=== PATIENT | female | born 1975 | race Two or more races ===

== ENCOUNTER → 2024-10-16 | Outpatient (CLI) | payer MEDICAID, SELFPAY ==
--- NOTE | 2024-10-16 | XR_ITS ---
Examination: Breast ultrasound, unilateral, left complete Date and time of exam: October 16, 2024 1220 hours INDICATIONS: Palpable lump left breast 2:00 position 4 months, personal history right breast cancer lumpectomy 2017 09 Technique: Real-time harman scale ultrasonographic imaging performed right breast including all 4 quadrants as well as nipple retroareolar and axillary region. Findings: 1:00 cyst 6 x 3 x 6 mm 2:00 oval mass, irregular, indistinct margins 2.9 x 1.8 x 2.2 cm 11:00 oval mass circumscribed 7 x 3 x 6 mm IMPRESSION: BI-RADS Category 4: Suspicious for malignancy Suspicious mass 2:00 position left breast 2.9 x 1.8 x 2.2 cm, biopsy is needed to exclude breast carcinoma, this mass is amenable to ultrasound-guided breast biopsy for diagnosis Recommend follow-up repeat diagnostic mammography, bilateral
== END | disposition home or self-care (01) ==
PROVIDERS: PCP Nurse Practitioner Family; Referring Provider Student in an Organized Health Care Education/Training Program; Visit Provider Student in an Organized Health Care Education/Training Program
DX: N63.21 Unspecified lump in the left breast, upper outer quadrant (principal); Z85.3 Personal history of malignant neoplasm of breast
CPT/HCPCS: 76641

== ENCOUNTER → 2024-11-16 | Outpatient (CLI) | payer MEDICAID, SELFPAY ==
--- NOTE | 2024-11-16 12:33 | XR_ITS ---
Examination: Wrist, right 3 views Technique: Wrist AP, oblique, lateral 3 views Date and time of exam: November 16, 2024 at 1353 hours INDICATIONS: Right wrist pain beginning 2 months ago. FINDINGS: Significant osteopenia Mild diffuse narrowing radiocarpal intercarpal and carpal metacarpal joints No erosive arthritis No fracture IMPRESSION: Significant osteopenia Mild nonerosive diffuse narrowing radiocarpal, intercarpal and carpometacarpal joints
== END | disposition home or self-care (01) ==
LOC: CDIM 12:17
PROVIDERS: PCP Nurse Practitioner Family; Referring Provider Nurse Practitioner Family; Visit Provider Nurse Practitioner Family
DX: M85.88 Other specified disorders of bone density and structure, other site (principal); M25.831 Other specified joint disorders, right wrist
CPT/HCPCS: 73110

== ENCOUNTER → 2024-12-10 | Outpatient (CLI) | payer MEDICAID, SELFPAY ==
[2024-12-07 11:36] LABS: Basophils # (Auto) 0.1 Thou/mm3 (0.0-0.2); Basophils % (Auto) 0 % (0-2.5); Eosinophils # (Auto) 0.1 Thou/mm3 (0.0-0.5); Eosinophils % (Auto) 1 % (0-10); Hematocrit 44.8 % (36.0-46.0); Hemoglobin 15.3 g/dL (12.0-16.0); Immature Granulocytes % (Auto) 1 % (0-0); Immature Granulocytes Auto 0.07 Thou/mm3 (0.00-0.00); Lymphocytes # (Auto) 2.3 Thou/mm3 (1.0-4.8); Lymphocytes % (Auto) 20 % (10-50); Mean Corpuscular HGB Conc 34.2 g/dl (31.0-37.0); Mean Corpuscular Hemoglobin 28.8 pg (25.0-35.0); Mean Corpuscular Volume 84 fL (80-100); Monocytes # (Auto) 0.5 Thou/mm3 (0.0-0.8); Monocytes % (Auto) 4 % (0-12); Neutrophils # (Auto) 8.3 Thou/mm3 (1.8-7.7); Neutrophils % (Auto) 74 % (37-80); Nucleated Red Blood Cell % 0 /100 WBC (0); Platelet Count 247 Thou/mm3 (140-440); RDW Standard Deviation 39.6 fL (36.4-46.3); Red Blood Count 5.32 Miln/mm3 (4.00-5.20); White Blood Count 11.3 Thou/mm3 (3.6-11.0)
[2024-12-07 11:54] LABS: Partial Thromboplastin Time 27.9 Seconds (22.0-36.0)
--- NOTE | 2024-12-10 09:30 | XR_ITS ---
Examinations: Ultrasound-guided percutaneous breast biopsy, left breast 2:00 nodule Left breast sonography limited INDICATIONS: BI-RADS 4 suspicious mass 2:00 position left breast on left breast sonogram October 16, 2024 Exam date and time: December 10, 2024 1036 hours. Informed consent provided. Technique: A timeout was completed verifying correct patient, procedure, site, positioning, and special equipment if applicable Informed consent provided. The patient was placed in a supine position for the breast biopsy. Sonographic images of the breast were performed for localization of the suspicious nodule The patient's breast was prepped and draped in sterile fashion. Maximum sterile barrier technique, hand hygiene, ultrasound sterile technique 1% lidocaine was used to anesthetize the skin and breast adjacent to the suspicious nodule. Utilizing ultrasonographic guidance, 8 core biopsies were obtained of the suspicious nodule utilizing an 18-gauge BioPince needle. The specimens appears satisfactory. US guided breast biopsy marker placement. Estimated blood loss 3 cc. The patient tolerated the procedure well and there were no complications. Impression: Successful ultrasound-guided percutaneous breast biopsy, left breast 2:00 mass. Ultrasound guided breast biopsy marker placement.
== END | disposition home or self-care (01) ==
LOC: SDIM 10:16 → SIRX 10:28
PROVIDERS: Radiology Diagnostic Radiology; PCP Nurse Practitioner Family; Referring Provider Nurse Practitioner Family; Visit Provider Nurse Practitioner Family
DX: C50.412 Malignant neoplasm of upper-outer quadrant of left female breast (principal); Z17.1 Estrogen receptor negative status [ER-]; Z17.22 Progesterone receptor negative status; Z01.812 Encounter for preprocedural laboratory examination
CPT/HCPCS: 19083; 36415; 85025; 85610; 85730; A4648

== ENCOUNTER → 2024-12-21 | Outpatient (CLI) | payer MEDICAID, SELFPAY ==
--- NOTE | 2024-12-21 15:42 | XR_ITS ---
Examination: Ribs, right, unilateral 3 views TECHNIQUE: AP, RPO and LPO right ribs 3 views Exam date and time: December 21, 2024 1553 hours INDICATIONS: Right rib pain 3 days no trauma Findings: Normal heart size No pneumothorax Moderate osteopenia Ribs appear intact IMPRESSION: No pneumothorax Ribs appear intact
--- NOTE | 2024-12-21 15:42 | XR_ITS ---
Examination: PA lateral chest 2 views TECHNIQUE: Upright PA lateral chest 2 views Exam date and time: December 13, 2024 1559 hours INDICATIONS: Coughing chest pain beginning 3 days ago. FINDINGS: Normal heart size Left subclavian Port-A-Cath tip SVC No lobar pneumonia or pulmonary edema Moderate osteopenia IMPRESSION: No pneumonia or pulmonary edema
== END | disposition home or self-care (01) ==
PROVIDERS: PCP Nurse Practitioner Family; Referring Provider Nurse Practitioner Family; Visit Provider Nurse Practitioner Family
DX: R05.9 Cough, unspecified (principal); R07.81 Pleurodynia
CPT/HCPCS: 71046; 71100

== ENCOUNTER 2025-01-22 07:55 | Day surgery (SDC) | payer MEDICAID, SELFPAY ==
--- NOTE | 2025-01-21 08:45 | EKG_ITS ---
[facility] Test Date: 2025-01-21 Pat Name: ULISES PARKINSON Department: Room: - Gender: Female Last Puller: DEBORAH : 1975 Requested By: Andres Rutherford Order Number: [id number] Reading MD: Andres Rutherford Measurements Intervals [place] Rate: 96 P: 56 DC: 210 QRS: 1 QRSD: 100 T: 62 QT: 341 QTc: 432 Interpretive Statements SINUS RHYTHM WITH FIRST DEGREE AV BLOCK LOW QRS VOLTAGE IN PRECORDIAL LEADS [QRS DEFLECTION < 1.0 mV IN CHEST LEADS] SEPTAL MYOCARDIAL INFARCTION , PROBABLY OLD [40+ ms Q WAVE IN V1/V2] No previous ECG available for comparison /[id number]/[email or web address]/[id number].pdf
[2025-01-21 08:54] VITALS: BMI 22.8
[2025-01-21 10:31] LABS: Basophils # (Auto) 0.1 Thou/mm3 (0.0-0.2); Basophils % (Auto) 1 % (0-2.5); Eosinophils # (Auto) 0.2 Thou/mm3 (0.0-0.5); Eosinophils % (Auto) 3 % (0-10); Hematocrit 43.5 % (36.0-46.0); Hemoglobin 14.8 g/dL (12.0-16.0); Immature Granulocytes % (Auto) 1 % (0-0); Immature Granulocytes Auto 0.04 Thou/mm3 (0.00-0.00); Lymphocytes # (Auto) 1.5 Thou/mm3 (1.0-4.8); Lymphocytes % (Auto) 17 % (10-50); Mean Corpuscular Hemoglobin 29.2 pg (25.0-35.0); Mean Corpuscular Volume 86 fL (80-100); Monocytes # (Auto) 0.4 Thou/mm3 (0.0-0.8); Monocytes % (Auto) 5 % (0-12); Neutrophils # (Auto) 6.1 Thou/mm3 (1.8-7.7); Neutrophils % (Auto) 73 % (37-80); Nucleated Red Blood Cell % 0 /100 WBC (0); Platelet Count 238 Thou/mm3 (140-440); RDW Standard Deviation 39.5 fL (36.4-46.3); Red Blood Count 5.07 Miln/mm3 (4.00-5.20); White Blood Count 8.4 Thou/mm3 (3.6-11.0)
[2025-01-21 10:36] LABS: Partial Thromboplastin Time 27.7 Seconds (22.0-36.0); Prothrombin Time 11.2 Seconds (9.0-12.2)
[2025-01-21 10:40] LABS: HCG,Qualitative Serum Negative
[2025-01-21 10:42] LABS: Alanine Aminotransferase 42 U/L (10-49); Albumin/Globulin Ratio 2.3 (1.2-2.2); Alkaline Phosphatase 99 U/L (46-116); Anion Gap 9 (7-16); Aspartate Amino Transferase 22 U/L (0-34); BUN/Creatinine Ratio 17 Ratio (12-20); Bilirubin,Total 0.4 mg/dL (0.3-1.2); Blood Urea Nitrogen 12 mg/dL (9-23); Calcium 11.8 mg/dL (8.3-10.6); Calcium (Corrected) 11.8 mg/dL (8.5-10.1); Carbon Dioxide 25.9 mMol/L (20.0-31.0); Chloride 102 mMol/L (98-107); Creatinine (Component) 0.7 mg/dL (0.6-1.3); Globulin 2.2 gm/dL (2.3-3.5); Glucose 187 mg/dL (74-106); Osmolality,Calculated 278 (275-295); Potassium 4.2 mMol/L (3.4-5.1); Sodium 137 mMol/L (136-145); Total Protein 7.2 gm/dL (5.7-8.2); eGFR > 60 See Note
[2025-01-22] VITALS (15 sets, daily range): BP systolic 109–178; BP diastolic 74–100; PULSE 79–98; RESP 12–20; TEMP 36.3–36.5; O2SAT 95–100; BMI 24.1
[2025-01-22] MEDS: RINGERS LACTATED 1000 ML 1,000 ML 20 ML IV (09:00)
--- NOTE | 2025-01-22 10:00 | XR_ITS ---
Examination: Nuclear medicine lymph glands imaging [place] lymph nodes study left breast Exam date and time: January 22, 2025, 10:00 AM INDICATIONS: Diagnosis left breast cancer, malignant neoplasm upper outer quadrant left female breast, preop lumpectomy and lymph node dissection today TECHNIQUE AND FINDINGS: Informed consent provided. Timeout performed. Skin prepped over the left breast and sterile drape applied hand hygiene 1% lidocaine administered for local anesthesia 2.0 mCi technetium 99m filtered sulfur colloid introduced subareolar left breast Estimated blood loss 0 cc No imaging IMPRESSION: Successful sentinel lymph node study left breast
--- NOTE | 2025-01-22 11:57 | ESOP_ITS ---
Date of Procedure 01/22/25 Pre Op Diagnosis Malignant neoplasm of upper-outer quadrant of left breast Post Op Diagnosis Malignant neoplasm of upper-outer quadrant of left breast Malfunctioning Port-A-Cath Procedure Left mastectomy with sentinel lymphadenectomy and injection of methylene blue Removal of Port-A-Cath Findings A large tumor in the upper and outer quadrant of left breast without obvious invasion into the underlying muscle or overlying skin. 3 sentinel lymph nodes identified and removed. The Port-A-Cath was not functioning, and could not be flushed or could not aspirate any blood. Anesthesia GETA and local Drains ISAAC drain x 2 Pathology / specimen Other (Left breast. 3 sentinel lymph nodes. Port-A-Cath for gross inspection) Estimated Blood Loss 25 Condition Stable Disposition PACU Surgeon Andres Rutherford MD Surgical Staff Operation Date: 01/22/25 11:30 Case Staff RETAIL SUPPORT ASSOCIATE: Duc Conklin RN First Assistant: Christie Wagner
--- NOTE | 2025-01-22 12:06 | SUR.PHASEI ---
pt received from OR in recovery bay 7. pt asleep but responds to voice, breathing unlabored on oxymask 8l. v/s stable. pt dressing to left breast cdi, breast binder in place, [address] report received from Jarrett XIAO and Yessenia TIPTON.
[2025-01-22] MEDS: HYDROmorphone INJ 2 MG/ML VIAL 0.4 MG IV (12:20)
[2025-01-22] MEDS: ONDANSETRON INJ 2 MG/ML INJ 2 ML 4 MG IV (12:29)
[2025-01-22] MEDS: METOCLOPRAMIDE INJ 5 MG/ML VIAL 2 ML 10 MG IVP (12:46)
--- NOTE | 2025-01-22 13:37 | SUR.PHASEII ---
Contacted Dr. Rutherford about pt passing large blood clots in ISAAC drain, no new orders received.
--- NOTE | 2025-01-22 13:51 | SUR.PHASEII ---
Contacted Dr. Rutherford about drainage amount after large blood clot passed through mayela drain 210ml and continuing to drain. no new orders received.
--- NOTE | 2025-01-22 14:05 | SUR.PHASEII ---
Received report on pt. s/p surgery from Delfin TIPTON. Pt. is resting with eyes closed, responds to verbal commands, VSS, no c/o pain or nausea at this time. Monitoring output of mayela drain. Pt.'s family at bedside.
--- NOTE | 2025-01-22 14:40 | SUR.PHASEII ---
Pts mayela drain bulb changed twice on left side to large amount of blood clots preventing emptying of drain, will inform Dr. Rutherford.
--- NOTE | 2025-01-22 14:45 | SUR.PHASEII ---
pt able to tolerate oral fluids without difficulty swallowing or nausea/vomiting.
--- NOTE | 2025-01-22 14:46 | SUR.PHASEII ---
Grey Lares contacted Dr. Rutherford about drainage amount 315ml total left side and 30 ml total right side and multiple clots in mayela drain, no new orders received. pt cleared for discharge.
[2025-01-22] MEDS: MEPERIDINE INJ 50 MG/ML VIAL 12.5 MG IV (15:00)
--- NOTE | 2025-01-22 15:45 | SUR.PHASEII ---
pt awake and alert, breathing unlabored on room air. v/s stable. pt dressing to left breast cdi, breast binder in place, mayela x2 in place. pt able to ambulate to wheelchair with steady gait. d/c instructions given with family member Aide in room, all questions answered. pt d/c via wheelchair with all belongings.
== END 2025-01-22 15:45 | disposition home or self-care (01) ==
PROVIDERS: Anesthesiology; Radiology Diagnostic Radiology; PCP Nurse Practitioner Family; Referring Provider Surgery; Visit Provider Surgery
PROC: (CPT 19303; principal; 2025-01-22 11:15)
DX: C50.412 Malignant neoplasm of upper-outer quadrant of left female breast (principal); C77.3 Secondary and unspecified malignant neoplasm of axilla and upper limb lymph nodes; Z01.810 Encounter for preprocedural cardiovascular examination; T82.594A Other mechanical complication of infusion catheter, initial encounter; E11.9 Type 2 diabetes mellitus without complications
CPT/HCPCS: 19303; 38525; 38900; 36590; 36415; 80048; 80053; 84703; 85025; 85610; 85730; 93005; A4217; A4649; A9541; J0131; J0690; J1171; J1885; J2175; J2250; J2405; J2704; J2765; J3010; J3490; J7120; Q9968

== ENCOUNTER 2025-06-11 08:10 | Day surgery (SDC) | payer MEDICAID, SELFPAY ==
[2025-06-10 08:43] VITALS: BMI 24.5
[2025-06-10 09:53] LABS: Basophils # (Auto) 0.1 Thou/mm3 (0.0-0.2); Basophils % (Auto) 1 % (0-2.5); Eosinophils # (Auto) 0.2 Thou/mm3 (0.0-0.5); Eosinophils % (Auto) 2 % (0-10); Hematocrit 41.2 % (36.0-46.0); Hemoglobin 14.0 g/dL (12.0-16.0); Immature Granulocytes Auto 0.05 Thou/mm3 (0.00-0.00); Lymphocytes # (Auto) 1.9 Thou/mm3 (1.0-4.8); Lymphocytes % (Auto) 23 % (10-50); Mean Corpuscular HGB Conc 34.0 g/dl (31.0-37.0); Mean Corpuscular Hemoglobin 27.9 pg (25.0-35.0); Mean Corpuscular Volume 82 fL (80-100); Monocytes # (Auto) 0.4 Thou/mm3 (0.0-0.8); Monocytes % (Auto) 5 % (0-12); Neutrophils # (Auto) 5.8 Thou/mm3 (1.8-7.7); Neutrophils % (Auto) 69 % (37-80); Nucleated Red Blood Cell # 0.00 Thou/mm3 (0.00-0.00); Nucleated Red Blood Cell % 0 /100 WBC (0); Platelet Count 245 Thou/mm3 (140-440); RDW Standard Deviation 39.0 fL (36.4-46.3); Red Blood Count 5.02 Miln/mm3 (4.00-5.20); White Blood Count 8.3 Thou/mm3 (3.6-11.0)
[2025-06-10 10:05] LABS: Alanine Aminotransferase 121 U/L (10-49); Albumin, Serum 4.8 gm/dL (3.5-5.0); Albumin/Globulin Ratio 2.4 (1.2-2.2); Alkaline Phosphatase 100 U/L (46-116); Anion Gap 11 (7-16); Aspartate Amino Transferase 70 U/L (0-34); BUN/Creatinine Ratio 11 Ratio (12-20); Bilirubin,Total 0.5 mg/dL (0.3-1.2); Blood Urea Nitrogen 8 mg/dL (9-23); Calcium 11.9 mg/dL (8.3-10.6); Calcium (Corrected) 11.9 mg/dL (8.5-10.1); Carbon Dioxide 26.6 mMol/L (20.0-31.0); Chloride 99 mMol/L (98-107); Creatinine (Component) 0.7 mg/dL (0.6-1.3); Estimated Creatinine Clearance 82.0 mL/min (>60); Globulin 2.0 gm/dL (2.3-3.5); Glucose 356 mg/dL (74-106); Osmolality,Calculated 286 (275-295); Potassium 4.1 mMol/L (3.4-5.1); Sodium 137 mMol/L (136-145); Total Protein 6.8 gm/dL (5.7-8.2); eGFR > 60 See Note
[2025-06-11] VITALS (9 sets, daily range): BP systolic 119–152; BP diastolic 78–97; PULSE 71–83; RESP 12–19; TEMP 36.3–36.7; O2SAT 95–97; BMI 24.3
--- NOTE | 2025-06-11 09:32 | CHAP ---
Visited with patient giving encouragement and prayer.
--- NOTE | 2025-06-11 10:00 | XR_ITS ---
Examination: AP chest single view Technique one AP portable supine chest single view Date and time: June 11, 2025, 1058 hours INDICATIONS: Port-A-Cath insertion FINDINGS: Left subclavian Port-A-Cath line fragment traversing innominate vein and superior vena cava Right internal jugular Port-A-Cath tip right atrium Extensive bilateral parenchymal disease IMPRESSION: Port-A-Cath lines as above
--- NOTE | 2025-06-11 11:26 | SUR.PHASEI ---
1126 Patient arrived to recovery resting comfortably in [facility], drowsy and able to arouse with verbal prompting, on oxygen 2L via nasal cannula, breathing unlabored, vital signs stable, denies pain, dressing intact to upper right chest; dermabond, gauze, tegaderm, no bleeding noted, denies nausea, report received from Francisca TIPTON and Moe XIAO
--- NOTE | 2025-06-11 11:27 | PD.SUROPNT ---
Date of Procedure 06/11/25 Pre Op Diagnosis Compression of vein History of breast cancer Post Op Diagnosis Compression of vein History of breast cancer Procedure Port-A-Cath placement in the right internal jugular vein Findings No evidence of pneumothorax, tip of the catheter in superior vena cava Procedure Description The patient was brought into the operating room in supine position. After administration of general endotracheal anesthesia, the right upper chest and neck prepped and draped in standard surgical manner. The infraclavicular region was anesthetized with 0.5% Marcaine. Left subclavian vein was cannulated in first attempt and guidewire was placed. The needle was removed. X-ray revealed the guidewire was going into internal jugular vein rather than superior vena cava. The guidewire was removed. I elected to cannulate the right internal jugular vein. After administration of local anesthesia the right internal jugular vein was cannulated. Guidewire was placed and placement of guidewire was confirmed with an x-ray. In the right upper chest an approximate 3 cm incision was made. Over the inferior aspects of incision, a pocket was created to accommodate the port aspects of the Port-A-Cath. Once this was done, dilator and introducer sheath placed over the guidewire. The guidewire and dilator were removed. Using a tunneling device the catheter was tunneled between the incision site and the insertion site of the guidewire in the right side of the neck. The catheter was placed through the introducer sheath and introducer sheath was then removed. The catheter was cut to an appropriate length and was connected to the port. Connector was tightened. Blood was being aspirated through the port easily, was flushed with heparinized saline. Once again the appropriate placement of the catheter was confirmed with an x-ray. Hemostasis was adequate and satisfactory. Subcutaneous tissue was closed with interrupted suture using 3-0 Vicryl. The skin was closed with 4-0 Monocryl in subcuticular fashion. The port was then accessed through the skin. Blood was being aspirated through the port easily, was flushed with heparinized saline. The patient tolerated the procedure well.she was extubated, she was breathing spontaneously and without difficulty, was transferred to the postanesthesia care in stable condition. Instruments, needles and sponge counts were reported to be correct x 2. Anesthesia GETA and local Pathology / specimen None Estimated Blood Loss 10 Condition Stable Disposition PACU Surgeon Andres Rutherford MD Surgical Staff Operation Date: 06/11/25 10:30 Case Staff TACTICAL/MOBILE WATCH OFFICER: Farhat Rivera
--- NOTE | 2025-06-11 12:06 | SUR.PHASEII ---
1206 patient complaining of burning to IV, edema noted to IV medication discontinued to IV, IV discontinued, patient shared, It feels so much better , no reddness noted, edema decreased to IV site, will monitor, notified Moe XIAO, no new order at this time
--- NOTE | 2025-06-11 12:47 | SUR.PHASEII ---
1242: pt awake, alert, able to follow commands, breathing unlabored, dressing to right chest clean, dry, and intact, pt disconnected from monitors and IV discontinued by previous nurse, discharge instructions given by previous nurse, report from Edwina Carney RN 1247: pt able to dress self and ambulate to wheelchair with steady gait, pt discharged via wheelchair with all belongings and copies of discharge paperwork.
== END 2025-06-11 12:47 | disposition home or self-care (01) ==
PROVIDERS: Anesthesiology; PCP Nurse Practitioner Family; Referring Provider Surgery; Visit Provider Surgery
PROC: (CPT 36561; principal; 2025-06-11 10:15)
DX: Z45.2 Encounter for adjustment and management of vascular access device (principal); I87.1 Compression of vein; E11.9 Type 2 diabetes mellitus without complications; C50.912 Malignant neoplasm of unspecified site of left female breast
CPT/HCPCS: 36561; 36415; 71046; 80053; 85025; A4217; A4649; C1788; J0131; J0690; J1644; J2250; J2704; J3010; J3490; J7050